=== PATIENT | male | born 2000 | race Hispanic/Latino ===

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

== ENCOUNTER 2021-01-08 19:02 | Emergency (ER) | payer OTHER ==
[~2021-01-08] VITALS: Ht 172.7 cm; Wt 109.5 kg
[2021-01-08 19:03] VITALS: BP 161/73
== END 2021-01-09 02:08 | disposition left against medical advice (07) ==
LOC: M ED 19:02
DX: Z53.21 Procedure and treatment not carried out due to patient leaving prior to being seen by health care provider (principal)

== ENCOUNTER → 2021-05-17 | Outpatient (REF) | LOC: M LABSMTC 14:06 | PROVIDERS: ATTEND Pediatrics | DX: Z11.52 Encounter for screening for COVID-19 (principal) ==